=== PATIENT | male | born 1995 | race Asian ===

== ENCOUNTER 2016-09-05 16:44 | Emergency (ER) | payer OTHER ==
[~2016-09-05] VITALS: Ht 177.8 cm; Wt 63.5 kg
[~2016-09-05 16:44] MED LIST: IBUPROFEN600 MG ORAL
[2016-09-05] MEDS ORDERED: AMOXICILLIN500 MG ORAL (17:26)
[2016-09-05] MEDS ORDERED: TESSALON PERLE100 MG ORAL (17:26)
[2016-09-05] MEDS ORDERED: ATIVAN0.5 MG ORAL (17:26)
[2016-09-05] MEDS ORDERED: LORazepam 1mg tab ORAL ONE (17:30)
[2016-09-05 17:40] VITALS: BP 135/85
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
== END 2016-09-05 17:40 | disposition home or self-care (01) ==
LOC: EMR 17:20
DX: J02.9 Acute pharyngitis, unspecified (principal); F41.9 Anxiety disorder, unspecified
CPT/HCPCS: 99284